=== PATIENT | male | born 1955 | race Caucasian/White ===

== ENCOUNTER → 2018-01-15 | Outpatient (CLI) | payer OTHER ==
[~2018-01-15] MED LIST: ALBU90OI61 INH; ARIP10 PO; Abilify PO; Abilify5 MG PO; BACL10 PO; BACL20 PO; BENTYL20 MG PO; CHOL10002 PO; CICL.77TC TOP; CLON.5 PO; CLON1 PO; DIPATR PO; DOCU100 PO; DULO60 PO; ERGO50000 PO; FENT25TP TOP; FENTANYL 12 MCG/HR; GABA300 PO; GABA400 PO; GABA600 PO; GABA800 PO; GABAPENTIN; GLYB2.5 PO; GLYB5 PO; HYDMOR8 PO; INSUASPI SC; INSUASPI SUBQ; Keflex500 MG PO; LAVAP17G PO; LORA1 PO; METF500 PO; METH10 PO; METH5 PO; METO25ER PO; MIRT15 PO; MIRT30 PO; MORP20ER PO; NAPR500 PO; OXYACE5T PO; OXYACE7.5T PO; OXYC10TA19 PO; OXYC15ER PO; OXYC5 PO; Oxycodone PO; PRED10 PO; PROM25 PO; Percocet 5-3251 EACH PO; Pravastatin Sod40 MG PO; SERT100 PO; TIZA4 PO; ZANAFLEX PO; Zanaflex2 M1 PO
== END | disposition home or self-care (01) ==
LOC: LAB 14:30 → LAB SHORT 14:30
DX: N39.0 Urinary tract infection, site not specified (principal)
CPT/HCPCS: 87077; 87086; 87186

== ENCOUNTER 2018-05-08 14:19 | Emergency (ER) | payer OTHER ==
[~2018-05-08] VITALS: Ht 175.3 cm; Wt 142.0 kg
[2018-05-08 15:21] LABS: BASOPHILS ABSOLUTE AUTO 0.05 K/mm3 (0.00-0.23); BASOPHILS PERCENT AUTO 1 % (0-2); EOSINOPHILS ABSOLUTE AUTO 0.29 K/mm3 (0.00-0.68); EOSINOPHILS PERCENT AUTO 3 % (0-6); Hematocrit 43.1 % (37.0-53.0); Hemoglobin 13.9 g/dL (13.5-17.5); IMMATURE GRAN PERCENT AUTO 1 % (0-1); LYMPHOCYTES ABSOLUTE AUTO 2.58 K/mm3 (0.84-5.20); LYMPHOCYTES PERCENT AUTO 24 % (21-46); MONOCYTES ABSOLUTE AUTO 0.44 K/mm3 (0.16-1.47); MONOCYTES PERCENT AUTO 4 % (4-13); Mean Corpuscular HGB 29.9 pg (26.0-34.0); Mean Corpuscular HGB Conc 32.3 g/dL (31.5-36.5); Mean Corpuscular Volume 93 fL (80-100); NEUTROPHILS ABSOLUTE AUTO 7.32 K/mm3 (1.96-9.15); NEUTROPHILS PERCENT AUTO 68 % (41-73); Platelet Count 262 K/mm3 (150-400); RDW Coefficient Variation 14.2 % (11.7-14.2); RDW Standard Deviation 48.7 fL (35.1-46.3); Red Blood Cell Count 4.65 M/mm3 (4.30-5.90); White Blood Cell Count 10.78 K/mm3 (4.00-11.30)
[2018-05-08 15:42] LABS: Alanine Aminotransfer (ALT/SGP 47 U/L (12-78); Albumin, Blood 3.7 g/dL (3.4-5.0); Albumin/Globulin Ratio 0.7 (0.8-1.8); Alk Phos 66 U/L (50-136); Anion Gap 6 mmol/L (6-16); Aspartate Aminotrans (AST/SGOT 25 U/L (12-37); Bilirubin, Total 0.2 mg/dL (0.1-1.0); Blood Urea Nitrogen 14 mg/dL (8-24); Bun/Creatinine Ratio 26.4 (12.0-20.0); CO2, Blood 28 mmol/L (21-32); Calcium, Blood 8.9 mg/dL (8.5-10.1); Chloride, Blood 104 mmol/L (98-108); Creatinine, Blood 0.53 mg/dL (0.60-1.20); Globulin, Blood 5.2 g/dL (2.2-4.0); Glomerular Filtration Rate >60 (60-); Glucose, Blood 104 mg/dL (70-99); Potassium, Blood 4.4 mmol/L (3.5-5.5); Sodium, Blood 138 mmol/L (136-145); Total Protein, Blood 8.9 g/dL (6.4-8.2)
== END 2018-05-08 18:06 | disposition home or self-care (01) ==
LOC: ER 14:19
PROVIDERS: Physician Assistant
DX: L89.151 Pressure ulcer of sacral region, stage 1 (principal); Z88.5 Allergy status to narcotic agent; Z79.899 Other long term (current) drug therapy; Z79.4 Long term (current) use of insulin; E11.9 Type 2 diabetes mellitus without complications
CPT/HCPCS: 36415; 80053; 85025; 93005; 93010; 99283-25

== ENCOUNTER → 2018-06-04 | Outpatient (CLI) | payer OTHER | END | disposition home or self-care (01) | LOC: LAB SHORT 14:00 → LAB 14:00 | DX: L08.0 Pyoderma (principal) | CPT/HCPCS: 87070; 87205 ==

== ENCOUNTER 2018-12-13 06:50 | Day surgery (SDC) | payer OTHER ==
[~2018-12-13] VITALS: Ht 175.3 cm; Wt 159.0 kg
[~2018-12-13 06:50] MED LIST changes: -Abilify5 MG PO; +Adipex-P37.5 MG PO; +CENTRUM SILVER1 EAC2 PO; -CHOL10002 PO; +NYSTRITC TOP; +PIOG15 PO; +PREG75 PO; +PROAIR RESPICL90 MCG INH; +TAMS.4ER PO; +VITAMIN D31000 UNIT PO
--- NOTE | 2018-12-13 08:03 | NUR ---
pT ARRIVED AT 0735 in recovery room. Pt in recliner wide awake stated pain 10/9 right wrist. Right radial site without hematoma or bleeding. Pt orders for pain med provided by Dr. Khan. Pt with iv infusing into the left hand #[id number] [phone] yifan of NS. Call light given ex at bedside per pt's request. Jacquelyn Caal RN, [facility]
--- NOTE | 2018-12-13 10:26 | NUR ---
Pt returned to room via bed, pt awake and cooperative. Pt denies pain at this time. Pt with mother at bedside. Dr. Olivia speaks to patient and Mother in recovery room. Brachial venous site wnl. Pt head of bed up vss stable. Breakfast served.
--- NOTE | 2018-12-13 11:56 | NUR ---
PT DISCHARGED VIA MOBILE chair. Pt alert and ready to go home. Iv removed cath intact. Pt denies pain. Mother Kat here at bedside. Reviewed information with family regarding discharge plan. Pt helped into his wheel chair by two staff memebers.
--- NOTE | 2018-12-13 11:59 | NUR ---
Brachial site left arm with no issues no hematoma clear dressing w/ gel pad.
== END 2018-12-16 23:06 | disposition home or self-care (01) ==
LOC: MHTC 06:50
DX: I87.1 Compression of vein (principal); Z88.5 Allergy status to narcotic agent; Z88.0 Allergy status to penicillin; Z88.8 Allergy status to other drugs, medicaments and biological substances
CPT/HCPCS: 37248; 75820; 76937; 82947; 99152; 99153; C1725; C1769; C1894; J1644; J2250; J2405; J3010; J7030; Q9967

== ENCOUNTER → 2019-10-07 | Outpatient (CLI) | payer OTHER | LOC: LAB SHORT 17:48 → LAB EV 17:48 | DX: N39.0 Urinary tract infection, site not specified (principal) | CPT/HCPCS: 87077; 87086; 87186 ==

== ENCOUNTER 2021-05-23 09:03 | Emergency (ER) | payer OTHER ==
[~2021-05-23] VITALS: Ht 175.3 cm; Wt 190.5 kg
== END 2021-05-23 10:37 | disposition home or self-care (01) ==
LOC: ER 09:03
DX: S50.02XA Contusion of left elbow, initial encounter (principal); M79.622 Pain in left upper arm; E11.9 Type 2 diabetes mellitus without complications; F17.210 Nicotine dependence, cigarettes, uncomplicated; Z79.899 Other long term (current) drug therapy; Z79.84 Long term (current) use of oral hypoglycemic drugs; Z79.4 Long term (current) use of insulin; Z88.5 Allergy status to narcotic agent; Z88.6 Allergy status to analgesic agent; W01.0XXA Fall on same level from slipping, tripping and stumbling without subsequent striking against object, initial encounter
CPT/HCPCS: 73080; 96374; 99283-25

== ENCOUNTER → 2022-03-11 | Outpatient (CLI) | payer OTHER | END | disposition home or self-care (01) | DX: I10 Essential (primary) hypertension (principal); G81.94 Hemiplegia, unspecified affecting left nondominant side ==

== ENCOUNTER → 2022-03-21 | Outpatient (CLI) | payer OTHER | END | disposition home or self-care (01) | LOC: LAB HH 10:10 → LAB SHORT 10:10 | DX: E11.9 Type 2 diabetes mellitus without complications (principal); G81.94 Hemiplegia, unspecified affecting left nondominant side; E66.01 Morbid (severe) obesity due to excess calories; I10 Essential (primary) hypertension; Z79.4 Long term (current) use of insulin; Z79.84 Long term (current) use of oral hypoglycemic drugs; Z79.85 Long-term (current) use of injectable non-insulin antidiabetic drugs | CPT/HCPCS: 83036 ==

== ENCOUNTER → 2022-04-15 | Outpatient (CLI) | payer OTHER ==
[2022-04-15 10:41] LABS: BASOPHILS ABSOLUTE AUTO 0.05 K/mm3 (0.00-0.23); BASOPHILS PERCENT AUTO 0 % (0-2); EOSINOPHILS PERCENT AUTO 5 % (0-6); Hematocrit 42.4 % (37.0-53.0); Hemoglobin 13.6 g/dL (13.5-17.5); IMMATURE GRAN ABSOLUTE AUTO 0.08 K/mm3 (0.00-0.10); IMMATURE GRAN PERCENT AUTO 1 % (0-1); LYMPHOCYTES ABSOLUTE AUTO 1.79 K/mm3 (0.84-5.20); LYMPHOCYTES PERCENT AUTO 16 % (21-46); MONOCYTES ABSOLUTE AUTO 0.46 K/mm3 (0.16-1.47); MONOCYTES PERCENT AUTO 4 % (4-13); Mean Corpuscular HGB 28.3 pg (26.0-34.0); Mean Corpuscular HGB Conc 32.1 g/dL (31.5-36.5); Mean Corpuscular Volume 88 fL (80-100); Mean Platelet Volume 9.4 fL (9.1-12.4); NEUTROPHILS ABSOLUTE AUTO 8.24 K/mm3 (1.96-9.15); NEUTROPHILS PERCENT AUTO 74 % (41-73); Platelet Count 311 K/mm3 (150-400); RDW Coefficient Variation 15.6 % (11.7-14.2); RDW Standard Deviation 50.4 fL (35.1-46.3); Red Blood Cell Count 4.81 M/mm3 (4.30-5.90); White Blood Cell Count 11.12 K/mm3 (4.00-11.30)
[2022-04-15 11:28] LABS: Bun/Creatinine Ratio 25.5 (12.0-20.0); Calcium, Blood 9.2 mg/dL (8.5-10.1); Creatinine, Blood 0.51 mg/dL (0.60-1.20)
== END | disposition home or self-care (01) ==
LOC: LAB SHORT 10:23
PROVIDERS: Family Medicine
DX: E11.9 Type 2 diabetes mellitus without complications (principal); I10 Essential (primary) hypertension
CPT/HCPCS: 80048; 83036; 85025

== ENCOUNTER 2022-11-11 03:15 | Day surgery (SDC) | payer OTHER | END 2022-11-11 22:51 | disposition home or self-care (01) | LOC: WOUND 03:15 | DX: L89.329 Pressure ulcer of left buttock, unspecified stage (principal); L89.319 Pressure ulcer of right buttock, unspecified stage; E11.622 Type 2 diabetes mellitus with other skin ulcer; E66.01 Morbid (severe) obesity due to excess calories; Z72.0 Tobacco use | CPT/HCPCS: A9270; G0463 ==

== ENCOUNTER 2022-11-18 01:35 | Day surgery (SDC) | payer OTHER | END 2022-11-18 23:16 | disposition home or self-care (01) | LOC: WOUND 01:35 | DX: L89.322 Pressure ulcer of left buttock, stage 2 (principal); E11.622 Type 2 diabetes mellitus with other skin ulcer; Z72.0 Tobacco use; E66.01 Morbid (severe) obesity due to excess calories; Z68.34 Body mass index [BMI] 34.0-34.9, adult; Z99.3 Dependence on wheelchair; G81.94 Hemiplegia, unspecified affecting left nondominant side | CPT/HCPCS: 99406; G0463 ==

== ENCOUNTER 2022-11-25 00:58 | Day surgery (SDC) | payer OTHER | END 2022-11-25 22:55 | disposition home or self-care (01) | LOC: WOUND 00:58 | DX: L89.322 Pressure ulcer of left buttock, stage 2 (principal); L89.892 Pressure ulcer of other site, stage 2; E11.622 Type 2 diabetes mellitus with other skin ulcer; Z72.0 Tobacco use; E66.01 Morbid (severe) obesity due to excess calories; Z68.34 Body mass index [BMI] 34.0-34.9, adult | CPT/HCPCS: 99406; G0463 ==

== ENCOUNTER 2022-12-02 02:25 | Day surgery (SDC) | payer OTHER | END 2022-12-02 23:33 | disposition home or self-care (01) | LOC: WOUND 02:25 | DX: L89.322 Pressure ulcer of left buttock, stage 2 (principal); E11.622 Type 2 diabetes mellitus with other skin ulcer; E66.01 Morbid (severe) obesity due to excess calories; Z68.34 Body mass index [BMI] 34.0-34.9, adult; Z72.0 Tobacco use | CPT/HCPCS: 99406; G0463 ==

== ENCOUNTER 2022-12-16 01:00 | Day surgery (SDC) | payer OTHER | END 2022-12-16 22:59 | disposition home or self-care (01) | LOC: WOUND 01:00 | DX: L89.322 Pressure ulcer of left buttock, stage 2 (principal); E11.622 Type 2 diabetes mellitus with other skin ulcer; E66.01 Morbid (severe) obesity due to excess calories; Z72.0 Tobacco use | CPT/HCPCS: 99406; A9270; G0463 ==

== ENCOUNTER 2022-12-23 00:47 | Day surgery (SDC) | payer OTHER | END 2022-12-23 22:54 | disposition home or self-care (01) | LOC: WOUND 00:47 | DX: L89.322 Pressure ulcer of left buttock, stage 2 (principal); L89.892 Pressure ulcer of other site, stage 2; E11.622 Type 2 diabetes mellitus with other skin ulcer; Z72.0 Tobacco use; E66.01 Morbid (severe) obesity due to excess calories; Z68.41 Body mass index [BMI] 40.0-44.9, adult | CPT/HCPCS: 99406; A9270; G0463 ==

== ENCOUNTER 2022-12-30 00:53 | Day surgery (SDC) | payer OTHER | END 2022-12-30 22:49 | disposition home or self-care (01) | LOC: WOUND 00:53 | DX: L89.322 Pressure ulcer of left buttock, stage 2 (principal); L89.892 Pressure ulcer of other site, stage 2; E11.622 Type 2 diabetes mellitus with other skin ulcer; Z72.0 Tobacco use; E66.01 Morbid (severe) obesity due to excess calories; Z68.41 Body mass index [BMI] 40.0-44.9, adult | CPT/HCPCS: A9270; G0463 ==

== ENCOUNTER 2023-01-12 03:09 | Day surgery (SDC) | payer OTHER | END 2023-01-12 23:07 | disposition home or self-care (01) | LOC: WOUND 03:09 | DX: L89.322 Pressure ulcer of left buttock, stage 2 (principal); L89.92 Pressure ulcer of unspecified site, stage 2; E11.622 Type 2 diabetes mellitus with other skin ulcer; E66.01 Morbid (severe) obesity due to excess calories; Z72.0 Tobacco use | CPT/HCPCS: A9270; G0463 ==

== ENCOUNTER 2023-02-03 05:07 | Day surgery (SDC) | payer OTHER | END 2023-02-03 22:44 | disposition home or self-care (01) | LOC: WOUND 05:07 | DX: L89.322 Pressure ulcer of left buttock, stage 2 (principal); L89.892 Pressure ulcer of other site, stage 2; E11.622 Type 2 diabetes mellitus with other skin ulcer; Z72.0 Tobacco use; E66.01 Morbid (severe) obesity due to excess calories; Z68.41 Body mass index [BMI] 40.0-44.9, adult | CPT/HCPCS: G0463 ==

== ENCOUNTER 2023-02-16 21:14 | Emergency (ER) | payer OTHER ==
[~2023-02-16] VITALS: Ht 205.7 cm; Wt 136.1 kg
[2023-02-17 01:22] VITALS: BP 124/67
== END 2023-02-17 02:48 | disposition home or self-care (01) ==
LOC: ER 21:14
DX: L89.159 Pressure ulcer of sacral region, unspecified stage (principal); G81.94 Hemiplegia, unspecified affecting left nondominant side; Z88.5 Allergy status to narcotic agent; Z79.899 Other long term (current) drug therapy; Z79.84 Long term (current) use of oral hypoglycemic drugs; Z79.4 Long term (current) use of insulin; F17.210 Nicotine dependence, cigarettes, uncomplicated
CPT/HCPCS: 99283

== ENCOUNTER 2023-02-17 05:07 | Day surgery (SDC) | payer OTHER | END 2023-02-17 22:54 | disposition home or self-care (01) | LOC: WOUND | DX: L89.322 Pressure ulcer of left buttock, stage 2 (principal); L89.892 Pressure ulcer of other site, stage 2; E11.622 Type 2 diabetes mellitus with other skin ulcer; Z72.0 Tobacco use; E66.01 Morbid (severe) obesity due to excess calories; Z68.41 Body mass index [BMI] 40.0-44.9, adult | CPT/HCPCS: G0463 ==

== ENCOUNTER 2023-02-24 01:55 | Day surgery (SDC) | payer OTHER | END 2023-02-24 22:51 | disposition home or self-care (01) | LOC: WOUND 01:55 | DX: L89.322 Pressure ulcer of left buttock, stage 2 (principal); L89.892 Pressure ulcer of other site, stage 2; E11.622 Type 2 diabetes mellitus with other skin ulcer; Z72.0 Tobacco use | CPT/HCPCS: A9270; G0463 ==

== ENCOUNTER 2023-03-02 02:09 | Day surgery (SDC) | payer OTHER | END 2023-03-02 22:53 | disposition home or self-care (01) | LOC: WOUND 02:09 | DX: L89.322 Pressure ulcer of left buttock, stage 2 (principal); L89.892 Pressure ulcer of other site, stage 2; E11.622 Type 2 diabetes mellitus with other skin ulcer; E66.01 Morbid (severe) obesity due to excess calories; Z72.0 Tobacco use | CPT/HCPCS: A9270; G0463 ==

== ENCOUNTER 2023-03-17 03:55 | Day surgery (SDC) | payer OTHER | END 2023-03-17 22:52 | disposition home or self-care (01) | LOC: WOUND 03:55 | DX: L89.322 Pressure ulcer of left buttock, stage 2 (principal); L89.892 Pressure ulcer of other site, stage 2; E11.622 Type 2 diabetes mellitus with other skin ulcer; Z72.0 Tobacco use; E66.01 Morbid (severe) obesity due to excess calories; Z68.41 Body mass index [BMI] 40.0-44.9, adult | CPT/HCPCS: G0463 ==

== ENCOUNTER 2023-03-24 03:08 | Day surgery (SDC) | payer OTHER | END 2023-03-24 23:14 | disposition home or self-care (01) | LOC: WOUND 03:08 | DX: L89.322 Pressure ulcer of left buttock, stage 2 (principal); L89.892 Pressure ulcer of other site, stage 2; E11.622 Type 2 diabetes mellitus with other skin ulcer; Z72.0 Tobacco use; E66.01 Morbid (severe) obesity due to excess calories; Z68.41 Body mass index [BMI] 40.0-44.9, adult | CPT/HCPCS: A9270; G0463 ==

== ENCOUNTER 2023-03-31 04:05 | Day surgery (SDC) | payer OTHER | END 2023-03-31 22:47 | disposition home or self-care (01) | LOC: WOUND 04:05 | DX: L89.322 Pressure ulcer of left buttock, stage 2 (principal); L89.92 Pressure ulcer of unspecified site, stage 2; E11.622 Type 2 diabetes mellitus with other skin ulcer; E66.01 Morbid (severe) obesity due to excess calories; G47.30 Sleep apnea, unspecified; Z72.0 Tobacco use | CPT/HCPCS: G0463 ==

== ENCOUNTER 2023-04-07 03:10 | Day surgery (SDC) | payer OTHER | END 2023-04-08 00:08 | disposition home or self-care (01) | LOC: WOUND 03:10 | DX: L89.322 Pressure ulcer of left buttock, stage 2 (principal); L89.892 Pressure ulcer of other site, stage 2; E11.622 Type 2 diabetes mellitus with other skin ulcer; Z72.0 Tobacco use; E66.01 Morbid (severe) obesity due to excess calories | CPT/HCPCS: G0463 ==

== ENCOUNTER 2023-04-21 03:03 | Day surgery (SDC) | payer OTHER | END 2023-04-21 23:12 | disposition home or self-care (01) | LOC: WOUND 03:03 | DX: L89.322 Pressure ulcer of left buttock, stage 2 (principal); E11.622 Type 2 diabetes mellitus with other skin ulcer; Z72.0 Tobacco use; E66.01 Morbid (severe) obesity due to excess calories; Z68.41 Body mass index [BMI] 40.0-44.9, adult | CPT/HCPCS: G0463 ==

== ENCOUNTER 2023-05-05 01:23 | Day surgery (SDC) | payer OTHER | END 2023-05-05 22:55 | disposition home or self-care (01) | LOC: WOUND 01:23 | DX: L89.322 Pressure ulcer of left buttock, stage 2 (principal); L89.892 Pressure ulcer of other site, stage 2; E11.622 Type 2 diabetes mellitus with other skin ulcer; Z72.0 Tobacco use; E66.01 Morbid (severe) obesity due to excess calories | CPT/HCPCS: G0463 ==

== ENCOUNTER 2023-05-12 03:59 | Day surgery (SDC) | payer OTHER | END 2023-05-13 00:12 | disposition home or self-care (01) | LOC: WOUND 03:59 | DX: L89.322 Pressure ulcer of left buttock, stage 2 (principal); E11.622 Type 2 diabetes mellitus with other skin ulcer; E66.01 Morbid (severe) obesity due to excess calories; Z72.0 Tobacco use | CPT/HCPCS: A6213; G0463 ==

== ENCOUNTER 2023-05-19 01:26 | Day surgery (SDC) | payer OTHER | END 2023-05-19 22:59 | disposition home or self-care (01) | LOC: WOUND 01:26 | DX: L89.322 Pressure ulcer of left buttock, stage 2 (principal); L89.92 Pressure ulcer of unspecified site, stage 2; E11.622 Type 2 diabetes mellitus with other skin ulcer; Z72.0 Tobacco use; E66.01 Morbid (severe) obesity due to excess calories | CPT/HCPCS: A6213; G0463 ==

== ENCOUNTER 2023-06-02 01:47 | Day surgery (SDC) | payer OTHER ==
[2023-06-02] MEDS ORDERED: Triamcinolone Acet 0.1% Cream 15 gm ONE (12:31)
[2023-06-02] MEDS ORDERED: Miconazole Nitrate 2% 85 GM PWD ONE (12:32)
== END 2023-06-02 23:12 | disposition home or self-care (01) ==
LOC: WOUND 01:47
DX: L89.322 Pressure ulcer of left buttock, stage 2 (principal); L89.892 Pressure ulcer of other site, stage 2; E11.622 Type 2 diabetes mellitus with other skin ulcer; E66.01 Morbid (severe) obesity due to excess calories; Z72.0 Tobacco use
CPT/HCPCS: A9270; G0463

== ENCOUNTER 2023-08-18 04:04 | Day surgery (SDC) | payer OTHER | END 2023-08-18 23:05 | disposition home or self-care (01) | LOC: WOUND 04:04 | DX: L89.322 Pressure ulcer of left buttock, stage 2 (principal); E11.622 Type 2 diabetes mellitus with other skin ulcer; E66.01 Morbid (severe) obesity due to excess calories; Z72.0 Tobacco use | CPT/HCPCS: A6213; G0463 ==

== ENCOUNTER 2023-08-25 05:21 | Day surgery (SDC) | payer OTHER | END 2023-08-25 22:45 | disposition home or self-care (01) | LOC: WOUND 05:21 | DX: L89.322 Pressure ulcer of left buttock, stage 2 (principal); E11.622 Type 2 diabetes mellitus with other skin ulcer; E66.01 Morbid (severe) obesity due to excess calories; Z72.0 Tobacco use ==

== ENCOUNTER 2023-10-20 02:33 | Day surgery (SDC) | payer OTHER | END 2023-10-20 23:17 | disposition home or self-care (01) | LOC: WOUND 02:33 | DX: L89.322 Pressure ulcer of left buttock, stage 2 (principal); E66.01 Morbid (severe) obesity due to excess calories; E11.622 Type 2 diabetes mellitus with other skin ulcer; Z72.0 Tobacco use | CPT/HCPCS: G0463 ==

== ENCOUNTER 2023-10-27 01:39 | Day surgery (SDC) | payer OTHER | END 2023-10-27 22:44 | disposition home or self-care (01) | LOC: WOUND 01:39 | DX: L89.322 Pressure ulcer of left buttock, stage 2 (principal); L89.312 Pressure ulcer of right buttock, stage 2; E66.01 Morbid (severe) obesity due to excess calories; F17.200 Nicotine dependence, unspecified, uncomplicated | CPT/HCPCS: 99406; A6213; G0463 ==

== ENCOUNTER 2023-11-03 05:41 | Day surgery (SDC) | payer OTHER | END 2023-11-03 22:57 | disposition home or self-care (01) | LOC: WOUND 05:41 | DX: L89.322 Pressure ulcer of left buttock, stage 2 (principal); L89.312 Pressure ulcer of right buttock, stage 2; E11.622 Type 2 diabetes mellitus with other skin ulcer; E66.01 Morbid (severe) obesity due to excess calories; Z68.32 Body mass index [BMI] 32.0-32.9, adult; G81.94 Hemiplegia, unspecified affecting left nondominant side; Z72.0 Tobacco use | CPT/HCPCS: A6213; G0463 ==

== ENCOUNTER 2023-11-10 02:00 | Day surgery (SDC) | payer OTHER | END 2023-11-10 23:03 | disposition home or self-care (01) | LOC: WOUND 02:00 | DX: L89.322 Pressure ulcer of left buttock, stage 2 (principal); L89.312 Pressure ulcer of right buttock, stage 2; E11.622 Type 2 diabetes mellitus with other skin ulcer; E66.01 Morbid (severe) obesity due to excess calories; Z72.0 Tobacco use | CPT/HCPCS: A6213; G0463 ==

== ENCOUNTER 2023-11-17 03:43 | Day surgery (SDC) | payer OTHER | END 2023-11-17 23:08 | disposition home or self-care (01) | LOC: WOUND 03:43 | DX: L89.322 Pressure ulcer of left buttock, stage 2 (principal); L89.312 Pressure ulcer of right buttock, stage 2; E11.622 Type 2 diabetes mellitus with other skin ulcer; E66.01 Morbid (severe) obesity due to excess calories; Z72.0 Tobacco use | CPT/HCPCS: A6213; G0463 ==

== ENCOUNTER 2023-12-01 03:39 | Day surgery (SDC) | payer OTHER | END 2023-12-01 22:41 | disposition home or self-care (01) | LOC: WOUND 03:39 | DX: L89.322 Pressure ulcer of left buttock, stage 2 (principal); L89.312 Pressure ulcer of right buttock, stage 2; E11.622 Type 2 diabetes mellitus with other skin ulcer; E66.01 Morbid (severe) obesity due to excess calories; Z72.0 Tobacco use | CPT/HCPCS: A6213; G0463 ==

== ENCOUNTER 2023-12-08 03:29 | Day surgery (SDC) | payer OTHER | END 2023-12-08 23:52 | disposition home or self-care (01) | LOC: WOUND 03:29 | DX: L89.322 Pressure ulcer of left buttock, stage 2 (principal) | CPT/HCPCS: A6213; G0463 ==

== ENCOUNTER 2023-12-15 01:45 | Day surgery (SDC) | payer OTHER | END 2023-12-15 23:14 | disposition home or self-care (01) | LOC: WOUND 01:45 | DX: L89.322 Pressure ulcer of left buttock, stage 2 (principal); E11.622 Type 2 diabetes mellitus with other skin ulcer; E66.01 Morbid (severe) obesity due to excess calories; F17.200 Nicotine dependence, unspecified, uncomplicated | CPT/HCPCS: A6213; G0463 ==

== ENCOUNTER 2023-12-22 01:54 | Day surgery (SDC) | payer OTHER | END 2023-12-22 23:35 | disposition home or self-care (01) | LOC: WOUND 01:54 | DX: L89.322 Pressure ulcer of left buttock, stage 2 (principal); E11.622 Type 2 diabetes mellitus with other skin ulcer; E66.01 Morbid (severe) obesity due to excess calories; Z72.0 Tobacco use; Z68.41 Body mass index [BMI] 40.0-44.9, adult | CPT/HCPCS: A6213; G0463 ==

== ENCOUNTER 2024-01-05 04:43 | Day surgery (SDC) | payer OTHER | END 2024-01-06 01:49 | disposition home or self-care (01) | LOC: WOUND 04:43 | DX: L89.323 Pressure ulcer of left buttock, stage 3 (principal); L89.313 Pressure ulcer of right buttock, stage 3; E11.622 Type 2 diabetes mellitus with other skin ulcer; E66.01 Morbid (severe) obesity due to excess calories; Z72.0 Tobacco use | CPT/HCPCS: A6213; G0463 ==

== ENCOUNTER 2024-01-12 01:39 | Day surgery (SDC) | payer OTHER | END 2024-01-12 22:57 | disposition home or self-care (01) | LOC: WOUND 01:39 | DX: L89.323 Pressure ulcer of left buttock, stage 3 (principal); L89.313 Pressure ulcer of right buttock, stage 3; L89.892 Pressure ulcer of other site, stage 2; E11.622 Type 2 diabetes mellitus with other skin ulcer; E66.01 Morbid (severe) obesity due to excess calories; Z72.0 Tobacco use | CPT/HCPCS: A6213; G0463 ==

== ENCOUNTER 2024-01-19 03:48 | Day surgery (SDC) | payer OTHER | END 2024-01-20 03:11 | disposition home or self-care (01) | LOC: WOUND 03:48 | DX: L89.323 Pressure ulcer of left buttock, stage 3 (principal); L89.313 Pressure ulcer of right buttock, stage 3; L89.152 Pressure ulcer of sacral region, stage 2; L89.892 Pressure ulcer of other site, stage 2; G81.94 Hemiplegia, unspecified affecting left nondominant side; E66.01 Morbid (severe) obesity due to excess calories; Z68.41 Body mass index [BMI] 40.0-44.9, adult; F17.200 Nicotine dependence, unspecified, uncomplicated; Z99.3 Dependence on wheelchair | CPT/HCPCS: A6213; G0463 ==

== ENCOUNTER 2024-01-26 03:58 | Day surgery (SDC) | payer OTHER | END 2024-01-27 01:30 | disposition home or self-care (01) | LOC: WOUND 03:58 | DX: L89.313 Pressure ulcer of right buttock, stage 3 (principal); L89.322 Pressure ulcer of left buttock, stage 2; L89.892 Pressure ulcer of other site, stage 2; E11.9 Type 2 diabetes mellitus without complications; G81.94 Hemiplegia, unspecified affecting left nondominant side; E66.01 Morbid (severe) obesity due to excess calories; Z68.41 Body mass index [BMI] 40.0-44.9, adult; Z72.0 Tobacco use; Z99.3 Dependence on wheelchair | CPT/HCPCS: A6213; G0463 ==

== ENCOUNTER 2024-02-02 02:58 | Day surgery (SDC) | payer OTHER | END 2024-02-03 00:16 | disposition home or self-care (01) | LOC: WOUND 02:58 | DX: L89.313 Pressure ulcer of right buttock, stage 3 (principal); L89.892 Pressure ulcer of other site, stage 2; L89.323 Pressure ulcer of left buttock, stage 3; E11.622 Type 2 diabetes mellitus with other skin ulcer; E66.01 Morbid (severe) obesity due to excess calories | CPT/HCPCS: A6213; G0463 ==

== ENCOUNTER 2024-02-09 03:33 | Day surgery (SDC) | payer OTHER | END 2024-02-09 23:54 | disposition home or self-care (01) | LOC: WOUND 03:33 | DX: L89.313 Pressure ulcer of right buttock, stage 3 (principal); L89.322 Pressure ulcer of left buttock, stage 2; L89.892 Pressure ulcer of other site, stage 2; G82.20 Paraplegia, unspecified; E66.01 Morbid (severe) obesity due to excess calories; Z68.41 Body mass index [BMI] 40.0-44.9, adult; Z72.0 Tobacco use | CPT/HCPCS: A6213; G0463 ==

== ENCOUNTER 2024-02-23 04:24 | Day surgery (SDC) | payer OTHER | END 2024-02-24 03:15 | disposition home or self-care (01) | LOC: WOUND 04:24 | DX: L89.313 Pressure ulcer of right buttock, stage 3 (principal); L89.322 Pressure ulcer of left buttock, stage 2; E11.622 Type 2 diabetes mellitus with other skin ulcer; E66.01 Morbid (severe) obesity due to excess calories; Z68.41 Body mass index [BMI] 40.0-44.9, adult; Z72.0 Tobacco use | CPT/HCPCS: A6213; G0463 ==

== ENCOUNTER 2024-03-22 04:54 | Day surgery (SDC) | payer OTHER | END 2024-03-22 23:00 | disposition home or self-care (01) | LOC: WOUND 04:54 | DX: L89.322 Pressure ulcer of left buttock, stage 2 (principal); L89.312 Pressure ulcer of right buttock, stage 2; E11.9 Type 2 diabetes mellitus without complications; E66.01 Morbid (severe) obesity due to excess calories; G81.94 Hemiplegia, unspecified affecting left nondominant side; Z99.3 Dependence on wheelchair; Z72.0 Tobacco use; Z68.41 Body mass index [BMI] 40.0-44.9, adult | CPT/HCPCS: A6213; G0463 ==

== ENCOUNTER 2024-03-29 03:58 | Day surgery (SDC) | payer OTHER | END 2024-03-29 23:00 | disposition home or self-care (01) | LOC: WOUND 03:58 | DX: L89.323 Pressure ulcer of left buttock, stage 3 (principal); L89.313 Pressure ulcer of right buttock, stage 3; E11.622 Type 2 diabetes mellitus with other skin ulcer; E66.01 Morbid (severe) obesity due to excess calories; Z72.0 Tobacco use | CPT/HCPCS: A6213; G0463 ==

== ENCOUNTER 2024-04-19 04:44 | Day surgery (SDC) | payer OTHER | END 2024-04-19 23:00 | disposition home or self-care (01) | LOC: WOUND 04:44 | DX: L89.322 Pressure ulcer of left buttock, stage 2 (principal); L89.312 Pressure ulcer of right buttock, stage 2; E11.622 Type 2 diabetes mellitus with other skin ulcer; E66.01 Morbid (severe) obesity due to excess calories; Z72.0 Tobacco use | CPT/HCPCS: A6213; G0463 ==

== ENCOUNTER 2024-04-26 06:27 | Day surgery (SDC) | payer OTHER | END 2024-04-26 23:00 | disposition home or self-care (01) | LOC: WOUND 06:27 | DX: L89.322 Pressure ulcer of left buttock, stage 2 (principal); L89.312 Pressure ulcer of right buttock, stage 2; L89.893 Pressure ulcer of other site, stage 3; E11.622 Type 2 diabetes mellitus with other skin ulcer; E66.01 Morbid (severe) obesity due to excess calories; Z72.0 Tobacco use | CPT/HCPCS: A6213; G0463 ==

== ENCOUNTER 2024-05-10 04:44 | Day surgery (SDC) | payer OTHER ==
[2024-05-10] MEDS ORDERED: Lidocaine HCl 4% Cream 5 GM ONE (14:25)
== END 2024-05-12 23:00 | disposition home or self-care (01) ==
LOC: WOUND 04:44
DX: L89.322 Pressure ulcer of left buttock, stage 2 (principal); E11.9 Type 2 diabetes mellitus without complications; G81.94 Hemiplegia, unspecified affecting left nondominant side; E66.01 Morbid (severe) obesity due to excess calories; Z68.41 Body mass index [BMI] 40.0-44.9, adult; Z72.0 Tobacco use; Z99.3 Dependence on wheelchair
CPT/HCPCS: A6213; A9270

== ENCOUNTER 2024-05-17 06:33 | Day surgery (SDC) | payer OTHER | END 2024-05-17 23:00 | disposition home or self-care (01) | LOC: WOUND 06:33 | DX: L89.322 Pressure ulcer of left buttock, stage 2 (principal); L89.312 Pressure ulcer of right buttock, stage 2; E11.622 Type 2 diabetes mellitus with other skin ulcer; E66.01 Morbid (severe) obesity due to excess calories; Z72.0 Tobacco use | CPT/HCPCS: A6213; G0463 ==

== ENCOUNTER 2024-05-28 09:35 | Day surgery (SDC) | payer OTHER | END 2024-05-28 23:00 | disposition home or self-care (01) | LOC: WOUND 09:35 | DX: L89.322 Pressure ulcer of left buttock, stage 2 (principal); L89.312 Pressure ulcer of right buttock, stage 2; E66.01 Morbid (severe) obesity due to excess calories; E11.622 Type 2 diabetes mellitus with other skin ulcer; Z72.0 Tobacco use | CPT/HCPCS: A6213; G0463 ==

== ENCOUNTER 2024-06-07 04:01 | Day surgery (SDC) | payer OTHER | END 2024-06-07 23:00 | disposition home or self-care (01) | LOC: WOUND 04:01 | DX: L89.322 Pressure ulcer of left buttock, stage 2 (principal); L89.312 Pressure ulcer of right buttock, stage 2; E11.9 Type 2 diabetes mellitus without complications; G81.94 Hemiplegia, unspecified affecting left nondominant side; E66.01 Morbid (severe) obesity due to excess calories; Z68.41 Body mass index [BMI] 40.0-44.9, adult; Z72.0 Tobacco use; Z99.3 Dependence on wheelchair | CPT/HCPCS: A6213; G0463 ==

== ENCOUNTER 2024-06-14 03:02 | Day surgery (SDC) | payer OTHER | END 2024-06-14 23:00 | disposition home or self-care (01) | LOC: WOUND 03:02 | DX: L89.322 Pressure ulcer of left buttock, stage 2 (principal); L89.312 Pressure ulcer of right buttock, stage 2; E11.622 Type 2 diabetes mellitus with other skin ulcer; Z72.0 Tobacco use | CPT/HCPCS: A6213; G0463 ==

== ENCOUNTER 2024-06-21 05:11 | Day surgery (SDC) | payer OTHER | END 2024-06-21 23:00 | disposition home or self-care (01) | LOC: WOUND 05:11 | DX: L89.322 Pressure ulcer of left buttock, stage 2 (principal); L89.312 Pressure ulcer of right buttock, stage 2; E11.622 Type 2 diabetes mellitus with other skin ulcer; E66.01 Morbid (severe) obesity due to excess calories; Z72.0 Tobacco use | CPT/HCPCS: A6213; G0463 ==

== ENCOUNTER 2024-06-28 04:30 | Day surgery (SDC) | payer OTHER ==
[2024-06-28] MEDS ORDERED: Lidocaine HCl 4% Cream 5 GM ONE (14:44)
[2024-06-28] MEDS ORDERED: Silver Nitr/Potassium Nitrate 1 EA APPL ONE (15:42)
== END 2024-06-28 23:00 | disposition home or self-care (01) ==
LOC: WOUND 04:30
DX: L89.313 Pressure ulcer of right buttock, stage 3 (principal); L89.323 Pressure ulcer of left buttock, stage 3; L89.312 Pressure ulcer of right buttock, stage 2; L89.322 Pressure ulcer of left buttock, stage 2; E11.9 Type 2 diabetes mellitus without complications; G81.94 Hemiplegia, unspecified affecting left nondominant side; E66.01 Morbid (severe) obesity due to excess calories; Z68.41 Body mass index [BMI] 40.0-44.9, adult; Z72.0 Tobacco use; Z99.3 Dependence on wheelchair
CPT/HCPCS: A6213; A9270; G0463

== ENCOUNTER 2024-07-05 03:34 | Day surgery (SDC) | payer OTHER ==
[2024-07-05] MEDS ORDERED: Lidocaine HCl 4% Cream 5 GM ONE (14:58)
[2024-07-05] MEDS ORDERED: Silver Nitr/Potassium Nitrate 1 EA APPL ONE (15:35)
== END 2024-07-05 23:00 | disposition home or self-care (01) ==
LOC: WOUND 03:34
DX: L89.323 Pressure ulcer of left buttock, stage 3 (principal); L89.313 Pressure ulcer of right buttock, stage 3; L89.322 Pressure ulcer of left buttock, stage 2; L89.312 Pressure ulcer of right buttock, stage 2; G81.94 Hemiplegia, unspecified affecting left nondominant side; E11.9 Type 2 diabetes mellitus without complications; E66.01 Morbid (severe) obesity due to excess calories; Z68.41 Body mass index [BMI] 40.0-44.9, adult; Z72.0 Tobacco use; Z99.3 Dependence on wheelchair
CPT/HCPCS: A6213; A9270

== ENCOUNTER 2024-08-16 03:32 | Day surgery (SDC) | payer OTHER | END 2024-08-16 23:00 | disposition home or self-care (01) | LOC: WOUND 03:32 | DX: L89.322 Pressure ulcer of left buttock, stage 2 (principal); L89.312 Pressure ulcer of right buttock, stage 2; E11.622 Type 2 diabetes mellitus with other skin ulcer; E66.01 Morbid (severe) obesity due to excess calories; Z68.41 Body mass index [BMI] 40.0-44.9, adult; Z72.0 Tobacco use | CPT/HCPCS: A6213; G0463 ==

== ENCOUNTER 2024-09-20 03:06 | Day surgery (SDC) | payer OTHER | END 2024-09-20 23:00 | disposition home or self-care (01) | LOC: WOUND 03:06 | DX: L89.313 Pressure ulcer of right buttock, stage 3 (principal); L89.323 Pressure ulcer of left buttock, stage 3; E11.622 Type 2 diabetes mellitus with other skin ulcer; E66.01 Morbid (severe) obesity due to excess calories; Z72.0 Tobacco use | CPT/HCPCS: A6213; G0463 ==

== ENCOUNTER 2024-10-25 01:50 | Day surgery (SDC) | payer OTHER ==
[2024-10-25] MEDS ORDERED: Lidocaine HCl 4% Cream 5 GM ONE (15:18)
== END 2024-10-25 23:00 | disposition home or self-care (01) ==
LOC: WOUND 01:50
DX: E11.622 Type 2 diabetes mellitus with other skin ulcer (principal); L89.313 Pressure ulcer of right buttock, stage 3; L89.322 Pressure ulcer of left buttock, stage 2; E66.01 Morbid (severe) obesity due to excess calories; Z72.0 Tobacco use; Z99.3 Dependence on wheelchair
CPT/HCPCS: A6213; A9270; G0463

== ENCOUNTER 2024-11-15 04:24 | Day surgery (SDC) | payer OTHER | END 2024-11-15 23:00 | disposition home or self-care (01) | LOC: WOUND 04:24 | DX: L89.322 Pressure ulcer of left buttock, stage 2 (principal); L89.313 Pressure ulcer of right buttock, stage 3; E11.9 Type 2 diabetes mellitus without complications; E66.01 Morbid (severe) obesity due to excess calories; Z68.41 Body mass index [BMI] 40.0-44.9, adult; Z72.0 Tobacco use; Z99.3 Dependence on wheelchair | CPT/HCPCS: A6213; G0463 ==

== ENCOUNTER 2024-12-13 03:31 | Day surgery (SDC) | payer OTHER | END 2024-12-13 23:44 | disposition home or self-care (01) | LOC: WOUND 03:31 | DX: Z87.2 Personal history of diseases of the skin and subcutaneous tissue (principal); E11.9 Type 2 diabetes mellitus without complications; G81.94 Hemiplegia, unspecified affecting left nondominant side; E66.01 Morbid (severe) obesity due to excess calories; Z68.41 Body mass index [BMI] 40.0-44.9, adult; Z99.3 Dependence on wheelchair; Z72.0 Tobacco use | CPT/HCPCS: G0463 ==

== ENCOUNTER → 2025-01-23 | Outpatient (CLI) | payer OTHER ==
[2025-01-23 19:33] LABS: BASOPHILS ABSOLUTE AUTO 0.04 K/mm3 (0.00-0.23); BASOPHILS PERCENT AUTO 0 % (0-2); EOSINOPHILS ABSOLUTE AUTO 0.33 K/mm3 (0.00-0.68); EOSINOPHILS PERCENT AUTO 3 % (0-6); Hematocrit 36.8 % (37.0-53.0); Hemoglobin 11.6 g/dL (13.5-17.5); IMMATURE GRAN ABSOLUTE AUTO 0.05 K/mm3 (0.00-0.10); IMMATURE GRAN PERCENT AUTO 0 % (0-1); LYMPHOCYTES ABSOLUTE AUTO 1.98 K/mm3 (0.84-5.20); LYMPHOCYTES PERCENT AUTO 18 % (21-46); MONOCYTES ABSOLUTE AUTO 0.53 K/mm3 (0.16-1.47); MONOCYTES PERCENT AUTO 5 % (4-13); Mean Corpuscular HGB Conc 31.5 g/dL (31.5-36.5); Mean Corpuscular Volume 81 fL (80-100); NEUTROPHILS ABSOLUTE AUTO 8.35 K/mm3 (1.96-9.15); NEUTROPHILS PERCENT AUTO 74 % (41-73); NRBC ABSOLUTE 0.00 K/mm3 (0.00-0.02); NRBC Auto 0.0 /100 WBC (0.0-0.2); Platelet Count 283 K/mm3 (150-400); RDW Coefficient Variation 18.6 % (11.7-14.2); RDW Standard Deviation 54.1 fL (35.1-46.3)
[2025-01-23 19:37] LABS: Alanine Aminotransfer (ALT/SGP 36 U/L (12-78); Albumin, Blood 3.1 g/dL (3.4-5.0); Albumin/Globulin Ratio 0.6 (0.8-1.8); Anion Gap 9 mmol/L (3-11); Aspartate Aminotrans (AST/SGOT 28 U/L (12-37); Bilirubin, Total 0.3 mg/dL (0.1-1.0); Blood Urea Nitrogen 6 mg/dL (8-24); CHOL/HDL RATIO 2.7; CO2, Blood 30 mmol/L (21-32); Calcium, Blood 9.3 mg/dL (8.5-10.1); Chloride, Blood 97 mmol/L (98-108); Cholesterol 100 mg/dL (50-200); Creatinine, Blood 0.45 mg/dL (0.60-1.20); Globulin, Blood 5.2 g/dL (2.2-4.0); Glucose, Blood 110 mg/dL (70-99); HDL Cholesterol 37 mg/dL (>39); LDL/HDL RATIO 1.3; Low Density Lipoprotein Chol 47 mg/dL (0-110); Potassium, Blood 4.0 mmol/L (3.5-5.5); Sodium, Blood 132 mmol/L (136-145); Total Protein, Blood 8.3 g/dL (6.4-8.2); Triglycerides 81 mg/dL (30-160); Very Low Density Lipoprot Chol 16 mg/dL (6-32)
== END ==
LOC: LAB SHORT 17:39 → LAB 17:39
PROVIDERS: Family Medicine
DX: E11.9 Type 2 diabetes mellitus without complications (principal); E78.5 Hyperlipidemia, unspecified
CPT/HCPCS: 80053; 80061; 85025

== ENCOUNTER → 2025-01-27 | Outpatient (CLI) | payer OTHER ==
[2025-01-27 08:58] LABS: BASOPHILS ABSOLUTE AUTO 0.04 K/mm3 (0.00-0.23); BASOPHILS PERCENT AUTO 1 % (0-2); EOSINOPHILS ABSOLUTE AUTO 0.39 K/mm3 (0.00-0.68); EOSINOPHILS PERCENT AUTO 5 % (0-6); Hematocrit 36.0 % (37.0-53.0); Hemoglobin 11.3 g/dL (13.5-17.5); IMMATURE GRAN ABSOLUTE AUTO 0.03 K/mm3 (0.00-0.10); IMMATURE GRAN PERCENT AUTO 0 % (0-1); LYMPHOCYTES ABSOLUTE AUTO 1.93 K/mm3 (0.84-5.20); LYMPHOCYTES PERCENT AUTO 22 % (21-46); MONOCYTES ABSOLUTE AUTO 0.47 K/mm3 (0.16-1.47); MONOCYTES PERCENT AUTO 5 % (4-13); Mean Corpuscular HGB Conc 31.4 g/dL (31.5-36.5); Mean Corpuscular Volume 82 fL (80-100); NEUTROPHILS ABSOLUTE AUTO 5.86 K/mm3 (1.96-9.15); NEUTROPHILS PERCENT AUTO 67 % (41-73); NRBC ABSOLUTE 0.00 K/mm3 (0.00-0.02); NRBC Auto 0.0 /100 WBC (0.0-0.2); Platelet Count 290 K/mm3 (150-400); RDW Coefficient Variation 18.5 % (11.7-14.2); RDW Standard Deviation 54.4 fL (35.1-46.3)
[2025-01-27 09:10] LABS: LDL Direct Measurement 51 mg/dL (0-130); LDL/HDL RATIO 1.3
[2025-01-27 09:11] LABS: Alanine Aminotransfer (ALT/SGP 32 U/L (12-78); Albumin, Blood 2.9 g/dL (3.4-5.0); Albumin/Globulin Ratio 0.6 (0.8-1.8); Anion Gap 8 mmol/L (3-11); Aspartate Aminotrans (AST/SGOT 25 U/L (12-37); Bilirubin, Total 0.4 mg/dL (0.1-1.0); Blood Urea Nitrogen 6 mg/dL (8-24); CHOL/HDL RATIO 2.9; CO2, Blood 30 mmol/L (21-32); Calcium, Blood 9.0 mg/dL (8.5-10.1); Chloride, Blood 101 mmol/L (98-108); Cholesterol 97 mg/dL (50-200); Creatinine, Blood 0.46 mg/dL (0.60-1.20); Globulin, Blood 5.0 g/dL (2.2-4.0); Glucose, Blood 95 mg/dL (70-99); HDL Cholesterol 34 mg/dL (>39); Low Density Lipoprotein Chol 44 mg/dL (0-110); Potassium, Blood 3.9 mmol/L (3.5-5.5); Sodium, Blood 135 mmol/L (136-145); Total Protein, Blood 7.9 g/dL (6.4-8.2); Triglycerides 93 mg/dL (30-160); Very Low Density Lipoprot Chol 18 mg/dL (6-32)
== END ==
LOC: LAB 08:21 → LAB SHORT 08:21
DX: E11.9 Type 2 diabetes mellitus without complications (principal); E78.5 Hyperlipidemia, unspecified
CPT/HCPCS: 80053; 80061; 83721; 85025

== ENCOUNTER → 2025-02-20 | Outpatient (CLI) | payer OTHER ==
[2025-02-20 10:19] LABS: BASOPHILS ABSOLUTE AUTO 0.03 K/mm3 (0.00-0.23); BASOPHILS PERCENT AUTO 0 % (0-2); EOSINOPHILS ABSOLUTE AUTO 0.50 K/mm3 (0.00-0.68); EOSINOPHILS PERCENT AUTO 7 % (0-6); Hematocrit 34.0 % (37.0-53.0); Hemoglobin 10.9 g/dL (13.5-17.5); IMMATURE GRAN ABSOLUTE AUTO 0.03 K/mm3 (0.00-0.10); IMMATURE GRAN PERCENT AUTO 0 % (0-1); LYMPHOCYTES ABSOLUTE AUTO 1.59 K/mm3 (0.84-5.20); LYMPHOCYTES PERCENT AUTO 21 % (21-46); MONOCYTES ABSOLUTE AUTO 0.44 K/mm3 (0.16-1.47); MONOCYTES PERCENT AUTO 6 % (4-13); Mean Corpuscular HGB Conc 32.1 g/dL (31.5-36.5); Mean Corpuscular Volume 81 fL (80-100); NEUTROPHILS ABSOLUTE AUTO 4.96 K/mm3 (1.96-9.15); NEUTROPHILS PERCENT AUTO 66 % (41-73); NRBC ABSOLUTE 0.00 K/mm3 (0.00-0.02); NRBC Auto 0.0 /100 WBC (0.0-0.2); Platelet Count 262 K/mm3 (150-400); RDW Coefficient Variation 19.9 % (11.7-14.2); RDW Standard Deviation 58.8 fL (35.1-46.3)
[2025-02-20 11:30] LABS: Anion Gap 5.0 mmol/L (3-11); Blood Urea Nitrogen 8.0 mg/dL (8-24); CO2, Blood 31.0 mmol/L (21-32); Calcium, Blood 8.9 mg/dL (8.5-10.1); Chloride, Blood 103.0 mmol/L (98-108); Creatinine, Blood 0.45 mg/dL (0.60-1.20); Ferritin, Serum 6.0 ng/mL (26-388); Glucose, Blood 99.0 mg/dL (70-99); Potassium, Blood 4.2 mmol/L (3.5-5.5); Sodium, Blood 135.0 mmol/L (136-145); Total Iron Binding Capacity 407.0 ug/dL (250-450)
== END ==
LOC: LAB SHORT 09:33 → LAB 09:33
PROVIDERS: Family Medicine
DX: D64.9 Anemia, unspecified (principal)
CPT/HCPCS: 80048; 82728; 83540; 83550; 85025